=== PATIENT | female | born 1950 | race Caucasian/White ===

== ENCOUNTER 2017-05-04 07:18 | Day surgery (SDC) | payer BC ==
[~2017-05-04 07:18] MED LIST: Midazolam 1 MG/ML 2 ML SDV ONE; Propofol 200 MG/20 ML SDV ONE; fentaNYL 100 MCG/2 ML SDV ONE
[2017-05-04] MEDS ORDERED: Cyanocobalamin (Vitamin B12) 1,000 MCG/ML SDV IM ONE (08:30)
[2017-05-04] MEDS ORDERED: Glycopyrrolate 0.2 MG/ML 2 ML SYRINGE IVPUSH ONE (09:00)
[2017-05-04] MEDS ORDERED: Lactated Ringers 1,000 ML IV SCH ×2 (09:00→10:00)
[2017-05-04] MEDS ORDERED: MVI, Adult with Vitamin K 10 ML, Thiamine 200 MG, Chromium/Copper/Mang/Selen/Zn 1 ML in... IV ONE ×8 (09:00→10:00)
[2017-05-04] MEDS ORDERED: Albuterol/Ipratropium 3.0-0.5 MG/3 ML Neb Soln NEB ONE (09:19)
[2017-05-04 11:20] VITALS: BP 158/77
--- NOTE | 2017-05-10 20:12 | OR ---
DATE OF PROCEDURE: 05/04/2017 PREOPERATIVE DIAGNOSIS: 1. 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 2. Mild antral gastritis. PROCEDURE: Esophagogastroduodenoscopy with antral biopsies for CLOtest. ANESTHESIA: IV sedation. INDICATIONS FOR PROCEDURE: This is a 66-year-old status post laparoscopic adjustable gastric band placement. She has developed progressive intolerance to the band with nausea and emesis along with ongoing heartburn. This has continued despite medical management and incomplete deflation of the band. The plan is to proceed with upper GI endoscopy with biopsies as indicated. Potential risks including bleeding and perforation were discussed, and the patient wishes to proceed. DETAILS OF PROCEDURE: The patient was taken to the operating room and placed in a left lateral decubitus position. IV sedation was administered, after which the upper GI endoscope was passed orally through the esophagus, through the area of the band and into the stomach and from there and roughly to the third and fourth portions of the duodenum. At this point, the patient was noted to have quite a bit in way of esophageal dilation with retained bilious type fluid within the esophagus as well as some scattered food particles. These were evacuated and the patient was noted to have quite a bit of redness in the area of the esophagus likely related to the accumulation of bile and fluid. The scope easily passed through the imprint of the band which was focally located and there is no mechanical obstruction to the esophagus. Retroflexion revealed no evidence of complications such as erosion of the band from that vantage point. The antrum showed some mild patchy redness consistent with gastritis. The pyloric channel and visualized portion of the duodenum were unremarkable. Biopsies were obtained from the antrum and sent for CLOtest for H. pylori. Minimal bleeding from biopsy sites was seen. The scope was then withdrawn. Procedure was then concluded. RECOMMENDATION: We will remove the band. Ideally, this would be associated with a concurrent conversion to Michele-en-Y gastric bypass status post the patient's recent diarrhea. We will tentatively scheduled the removal of band for some time in May. Hubert Olvera MD /[id number]
== END 2017-05-04 11:56 | disposition home or self-care (01) ==
LOC: JP.SDS 07:18
PROVIDERS: ATTEND Surgery
DX: K31.89 Other diseases of stomach and duodenum (principal); I10 Essential (primary) hypertension; J44.9 Chronic obstructive pulmonary disease, unspecified; K21.9 Gastro-esophageal reflux disease without esophagitis; E11.9 Type 2 diabetes mellitus without complications; Z79.4 Long term (current) use of insulin; Z98.84 Bariatric surgery status; Z88.0 Allergy status to penicillin; Z88.1 Allergy status to other antibiotic agents; Z88.8 Allergy status to other drugs, medicaments and biological substances; Z88.2 Allergy status to sulfonamides; Z91.09 Other allergy status, other than to drugs and biological substances
CPT/HCPCS: 43239; 87081; J2250; J2704; J3010; J3411; J7120; J7620

== ENCOUNTER 2017-06-01 08:59 | Day surgery (SDC) | payer BC ==
[~2017-06-01 08:59] MED LIST changes: +Bupivacaine 0.5%/EPINEPHrine 1:200,000 50 ML MDV ONE; -Midazolam 1 MG/ML 2 ML SDV ONE; -Propofol 200 MG/20 ML SDV ONE; -fentaNYL 100 MCG/2 ML SDV ONE
[2017-06-01] MEDS ORDERED: Acetaminophen 325 MG Tab PO ONE (09:45)
[2017-06-01] MEDS ORDERED: Celecoxib 200 MG Cap PO ONE ×2 (09:45→10:00)
[2017-06-01] MEDS: Dextrose 5%-Lactated Ringers 1,000 ML IV SCH ×2 (10:12→14:46)
[2017-06-01] MEDS ORDERED: Albuterol/Ipratropium 3.0-0.5 MG/3 ML Neb Soln NEB ONE (10:30)
[2017-06-01] MEDS ORDERED: ceFAZolin 2 GM in Premix Bag 1 BAG IV ONE (11:30)
[2017-06-01] MEDS ORDERED: Ropivacaine 36 ML, Dexamethasone 8 MG, EPINEPHrine 0.4 MG, Sodium Chloride 0.9% 41.6 ML NERVRT SCH ×4 (11:45)
[2017-06-01] MEDS ORDERED: Dexamethasone 4 MG/ML SDV ONE (11:48)
[2017-06-01] MEDS ORDERED: Rocuronium 50 MG/5 ML Vial ONE (11:48)
[2017-06-01] MEDS ORDERED: Propofol 200 MG/20 ML SDV ONE (11:48)
[2017-06-01] MEDS ORDERED: Lidocaine 1% 2 ML ONE (11:48)
[2017-06-01] MEDS ORDERED: Ondansetron 4 MG/2 ML SDV ONE (11:48)
[2017-06-01] MEDS ORDERED: fentaNYL 100 MCG/2 ML SDV ONE ×2 (11:48→12:16)
[2017-06-01] MEDS ORDERED: Succinylcholine 200 MG/10 ML MDV ONE (11:48)
[2017-06-01] MEDS ORDERED: Neostigmine Methylsulfate 1 MG/ML 5 ML Syringe ONE (12:42)
[2017-06-01] MEDS ORDERED: Labetalol 20 MG/4 ML Syringe ONE (12:42)
[2017-06-01] MEDS ORDERED: Glycopyrrolate 0.2 MG/ML 5 ML MDV ONE (12:42)
[2017-06-01] MEDS ORDERED: hydrOXYzine HCl 100 MG/2 ML SDV IM ONE (13:57)
[2017-06-01] MEDS ORDERED: Albuterol/Ipratropium 3.0-0.5 MG/3 ML Neb Soln INH PRN (14:44)
[2017-06-01] MEDS ORDERED: Acetaminophen Soln 650 MG/20.3 ML UD Cup PO PRN (15:10)
[2017-06-01] MEDS ORDERED: Acetaminophen/HYDROcodone 108-2.5 MG/5 ML Soln 15 ML UD Cup PO PRN (15:10)
[2017-06-01] MEDS ORDERED: Acetaminophen 160 MG Tab,Disintegrating PO PRN (15:11)
[2017-06-01] MEDS ORDERED: hydrOXYzine HCl 100 MG/2 ML SDV IM PRN (15:11)
[2017-06-01] MEDS ORDERED: Ondansetron 4 MG/2 ML SDV IV PRN (15:16)
[2017-06-01] MEDS ORDERED: Labetalol 20 MG/4 ML Syringe IV PRN (15:17)
[2017-06-01] MEDS: Albuterol/Ipratropium 3.0-0.5 MG/3 ML Neb Soln INH SCH ×2 (15:51→20:49)
[2017-06-01] MEDS: Pantoprazole 40 MG Vial IV SCH (17:00)
[2017-06-01] MEDS: Acetaminophen/Codeine 300-30 MG Tab PO PRN (18:37)
[2017-06-01] MEDS: ceFAZolin 2 GM in Sodium Chloride 0.9% 50 ML IV SCH (20:00)
[2017-06-01] MEDS: Formoterol/Mometasone 200-5 MCG 8.8 GM Inhaler IH SCH (20:49)
[2017-06-02] MEDS: Dextrose 5%-Lactated Ringers 1,000 ML IV SCH (01:14)
[2017-06-02] MEDS: Acetaminophen/Codeine 300-30 MG Tab PO PRN ×2 (01:41→08:30)
[2017-06-02] MEDS: ceFAZolin 2 GM in Sodium Chloride 0.9% 50 ML IV SCH (03:06)
[2017-06-02] MEDS: Pantoprazole 40 MG Vial IV SCH (05:23)
[2017-06-02] MEDS ORDERED: Levothyroxine 100 MCG Tab PO SCH (07:30)
[2017-06-02 07:33] VITALS: BP 163/81
[2017-06-02] MEDS ORDERED: amLODIPine 5 MG Tab PO SCH (09:00)
[2017-06-02] MEDS: Albuterol/Ipratropium 3.0-0.5 MG/3 ML Neb Soln INH SCH (09:11)
[2017-06-02] MEDS: Formoterol/Mometasone 200-5 MCG 8.8 GM Inhaler IH SCH (09:11)
--- NOTE | 2017-06-03 13:47 | DISCH ---
FINAL DIAGNOSIS: Intolerance of laparoscopic adjustable gastric band with associated esophageal dilation. SECONDARY DIAGNOSES: History of asthma, history of hypertension, bariatric surgery status, history of stress incontinence, history of asthma. OPERATIVE PROCEDURE: On 06/01/2017, laparoscopic removal of laparoscopic adjustable gastric band system along with partial gastrectomy. SUMMARY: This is a 66-year-old female status post laparoscopic adjustable gastric band placement in 2009. She has developed problems with intractable reflux type symptoms that are related to esophageal dilation above the band and at this point is to have the band removed. This was done on the date of admission, some of the deserosalized edge of the stomach which was around the band was resected as well, which allowed minimal impact on her postoperative recovery. Presently, she will be discharged home with Tylenol No. 3, 1-2 tabs q.4 hours p.r.n. pain, #40. Otherwise, will be continuing her usual medications and follow up with Jeane Diaz who will be in [facility] on 06/11/2017.
--- NOTE | 2017-06-04 11:47 | OR ---
DATE OF PROCEDURE: 06/01/2017 PREOPERATIVE DIAGNOSIS: Progressive intolerance of laparoscopic adjustable gastric band. POSTOPERATIVE DIAGNOSES: 1. Progressive intolerance of laparoscopic adjustable gastric band. 2. Deserosalized portion of stomach secondary to takedown of laparoscopic adjustable gastric band. OPERATIVE PROCEDURE: Diagnostic laparoscopy with: 1. Removal of laparoscopic adjustable gastric band system (50401). 2. Partial gastrectomy (29531). ANESTHESIA: General. OPERATIONS BOARDMAN: Jeane Diaz PA-C and NISHA Galindo. INDICATION FOR PROCEDURE: A 66-year-old female presenting with progressive intolerance to laparoscopic adjustable gastric band. The plan is to proceed with a removal of the band system. She does not want to be converted to a gastric bypass or other bariatric procedure at this time. Potential risks of the procedure including bleeding, infection, injury to underlying viscera, problems with persistent reflux following the procedure were gone over, and the patient wishes to proceed. DETAILS OF PROCEDURE: The patient was taken to the operating room and placed in a supine position. After general endotracheal anesthesia was induced, bilateral transversus abdominis plane blocks were placed in the subcostal location under continuous ultrasound guidance. The abdomen was then prepped and draped and a Tripp catheter was inserted. At that point, at 15 cm inferior, 5 cm left of xiphoid process, transverse incision was made and peritoneal cavity entered under direct vision with Optiview trocar. The laparoscope was reinserted. No underlying trocar insertion site injuries were seen. Following this, 4 additional trocars were placed across the upper and mid abdomen, and general exploration was undertaken. The patient was noted to have a fair bit of adhesions around the band system. These were taken down with combination of cautery and Harmonic scalpel dissection. Eventually, the band was identified and the encircling attachments of the stomach up to the area above the band were then taken down with combination of cautery and blunt dissection. A ridge of deserosalized and heat damaged stomach was present after takedown of that. The band was then divided and removed from the tunnel through which it passed. The port tubing was then cut at an angled approach and the main portion of the band then removed from the peritoneal cavity. At this point, the ridge of stomach which had been deserosalized and heat damaged was excised with 2 firings of the ZAY purple loads and the specimen delivered from the field. At this point, no further intraabdominal problems were noted, trocars were removed, the peritoneal cavity deflated, and the incisions were closed at the fascial level with 0 Vicryl stitch. The port was then excised. The middle left subcostal trocar site was then enlarged through the skin and subcutaneous tissue medially, which allowed exposure of the band. This was the realized band and the attachments to the port were then divided with electrocautery, and eventually then the port and remaining port tubing were removed. The oblique transition point of the port tubing was confirmed to help confirm that the entire aspect of the tubing had been removed. This incision was then closed with 3-0 and 4-0 Vicryl stitch deep and then each incision closed with 4-0 Vicryl skin stitch. A dressing was applied. The patient was taken to the recovery room in satisfactory condition. Physician doctor assistant, Jeane Diaz played an essential role in assisting in this case, helping to retract structures as needed, positioning the patient as well as suturing and cutting sutures when indicated. Her presence improved the patient's safety and decreased the operative time. Hubert Olvera MD /[id number]
== END 2017-06-02 09:55 | disposition home or self-care (01) ==
LOC: JP.SDS 08:59 → JP.2SS 13:40 → JP.SDS 06-02 09:55
PROVIDERS: ATTEND Surgery
DX: K95.09 Other complications of gastric band procedure (principal); E66.9 Obesity, unspecified; I10 Essential (primary) hypertension; J45.909 Unspecified asthma, uncomplicated; N39.3 Stress incontinence (female) (male); Z79.899 Other long term (current) drug therapy
CPT/HCPCS: 36415; 43659; 43774; 80053; 85027; 94762; A9270; C9113; J0131; J0171; J0330; J0690; J1100; J2405; J2704; J2710; J2795; J3010; J3410; J7042; J7050; J7620; 88300; 88305

== ENCOUNTER 2017-06-14 07:56 | Day surgery (SDC) | payer BC ==
[2017-06-14] MEDS ORDERED: fentaNYL 100 MCG/2 ML SDV ONE (08:04)
[2017-06-14] MEDS ORDERED: Midazolam 1 MG/ML 2 ML SDV ONE (08:04)
[2017-06-14] MEDS ORDERED: Propofol 200 MG/20 ML SDV ONE (08:04)
[2017-06-14] MEDS ORDERED: Cyanocobalamin (Vitamin B12) 1,000 MCG/ML SDV IM ONE (09:00)
[2017-06-14] MEDS ORDERED: Albuterol/Ipratropium 3.0-0.5 MG/3 ML Neb Soln NEB ONE (09:00)
[2017-06-14] MEDS ORDERED: MVI, Adult with Vitamin K 10 ML, Thiamine 200 MG, Chromium/Copper/Mang/Selen/Zn 1 ML in... IV ONE ×4 (09:00)
[2017-06-14] MEDS ORDERED: Glycopyrrolate 0.2 MG/ML 2 ML SDV IVPUSH ONE (09:15)
[2017-06-14 11:11] VITALS: BP 154/87
--- NOTE | 2017-06-19 13:42 | OR ---
DATE OF PROCEDURE: 06/14/2017 PREOPERATIVE DIAGNOSIS: Dysphagia with associated retrosternal discomfort and postprandial bloating. POSTOPERATIVE DIAGNOSES: 1. Mild diffuse gastritis. 2. Persistent esophageal dilation. OPERATIVE PROCEDURE: Esophagogastroduodenoscopy with antral biopsies for CLOtest. ANESTHESIA: IV sedation. INDICATION FOR PROCEDURE: This is a 66-year-old status post a laparoscopic band removal on 06/01/2017. She presents now with some sense of dysphagia and retrosternal discomfort along with postprandial bloating. The plan is to proceed with upper GI endoscopy with biopsies and/or dilation as indicated. Potential risks including bleeding and perforation were discussed, and the patient wishes to proceed. DETAILS OF PROCEDURE: The patient was taken to the operating room and placed in a left lateral decubitus position. IV sedation was administered, after which the upper GI endoscope was passed orally through the length of the esophagus into the stomach with retroflexion view of the fundus, thereafter through the pyloric channel and into the proximal duodenum. Findings included normal hypopharynx, larynx, and upper esophageal sphincter. Within the esophageal body, there was some persistent diffuse dilation. This was associated with a little bit of sense of spasm at the EG junction. There was no retained food or fluid within the esophagus. The EG junction was widely patent, and the patient had mild diffuse gastritis without erosions or ulcers. Pyloric channel and proximal duodenum were unremarkable. At this point, biopsies were obtained from the antrum and sent for CLOtest for H. pylori. Minimal bleeding from the biopsy sites was controlled with electrocautery. The plan will be to have the patient continue the Carafate and omeprazole. She will be following up with Jeane Diaz in one month. She will be instructed to either eat little bit more slowly and drink little bit more in way of liquids with the ongoing meal. If she is still complaining of esophageal spasm type symptoms within a month, one might give a trial of nitroglycerin and/or something like Procardia. She will be following up with Jeane Diaz at [facility]] in one month. Hubert Olvera MD /[id number]
== END 2017-06-14 11:25 | disposition home or self-care (01) ==
LOC: JP.SDS 07:56
PROVIDERS: ATTEND Surgery
DX: K29.70 Gastritis, unspecified, without bleeding (principal); I10 Essential (primary) hypertension; F17.210 Nicotine dependence, cigarettes, uncomplicated; Z98.84 Bariatric surgery status; Z79.899 Other long term (current) drug therapy
CPT/HCPCS: 43239; 87081; J2250; J2704; J3010; J3411; J3420; J7120; J7620; J3490